=== PATIENT | female | born 1935 | race Caucasian/White ===

== ENCOUNTER 2019-08-05 11:43 | Emergency (ER) | payer MEDICARE ==
[~2019-08-05] VITALS: Ht 160 cm; Wt 58.2 kg
[2019-08-05 11:54] VITALS: Ht 160 cm; Wt 58.2 kg
[2019-08-05 14:16] VITALS: BP 142/81
== END 2019-08-05 14:18 | disposition home or self-care (01) ==
LOC: D.ER 11:43
DX: S00.83XA Contusion of other part of head, initial encounter (principal); W19.XXXA Unspecified fall, initial encounter; Y93.9 Activity, unspecified; Y92.9 Unspecified place or not applicable; E03.9 Hypothyroidism, unspecified